=== PATIENT | male | born 1965 | race American Indian/Alaskan Native ===

== ENCOUNTER 2021-06-18 09:58 | Outpatient (CLI) | payer OTHER ==
--- NOTE | 2021-06-18 12:17 | XRay Report ---
RIGHT KNEE 4 VIEWS INDICATION: RIGHT KNEE PAIN. COMPARISON: None. IMPRESSION: No acute osseous or soft tissue abnormality. No significant DJD. RIGHT ANKLE 2 VIEWS INDICATION: Right ankle pain. COMPARISON: None. IMPRESSION: No acute osseous or soft tissue abnormality. 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 No bone lesion or osteonecrosis. Signer Name: Pasha Raza Jr, MD Signed: 06/18/2021 12:13 PM Workstation Name: [id number]
== END 2021-06-18 09:59 | disposition home or self-care (01) ==
LOC: XRAY 09:58
DX: M19.071 Primary osteoarthritis, right ankle and foot (principal); M25.473 Effusion, unspecified ankle; M25.561 Pain in right knee